=== PATIENT | female | born 1960 | race Two or more races ===

== ENCOUNTER 2021-07-04 06:00 | Day surgery (SDC) | payer OTHER ==
[~2021-07-04 06:00] MED LIST: CLONAZEPAM0.5 MG PO; CRESTOR5 MG PO; MULTIPLE VITAM1 EAC2 PO; NORVASC2.5 M1 PO; PROBIOTIC1 EAC4 PO
[2021-07-04] MEDS ORDERED: PERCOCET 5-3251 EACH PO (09:05)
== END 2021-07-04 11:00 | disposition home or self-care (01) ==
LOC: CIR.AMB 06:00
PROVIDERS: ATTEND Surgery
DX: D35.1 Benign neoplasm of parathyroid gland (principal); E21.0 Primary hyperparathyroidism; Z88.0 Allergy status to penicillin; I10 Essential (primary) hypertension; Z86.16 Personal history of COVID-19; G47.33 Obstructive sleep apnea (adult) (pediatric); I38 Endocarditis, valve unspecified; Z87.442 Personal history of urinary calculi; Z20.822 Contact with and (suspected) exposure to COVID-19